=== PATIENT | female | born 1990 | race Caucasian/White ===

== ENCOUNTER 2022-06-27 07:20 | Emergency (ER) | payer MEDICAID, SELFPAY ==
--- NOTE | ~2022-06-27 | US_ITS ---
EXAMINATION: ULTRASOUND OB, LIMITED CLINICAL INFORMATION: 26 week patient with question no movement. Patient late to care. COMPARISON: None TECHNIQUE: Transabdominal and transvaginal pelvic ultrasound. A transvaginal study was performed in addition to the transabdominal study which did not yield an adequate examination of the uterus and due to superimposed distended gas-filled loops of bowel. FINDINGS: Based on patient's last vesicle. Of 12/30/2021, a 25 week 4 day gestation is expected with estimated date of delivery of 10/06/2022. A single live intrauterine gestation is identified with a positive heartbeat of 146 bpm the placenta is anterior and fundal in location. The cervix is not demonstrated adequately and internal os as well as the placental edge relative to the cervix are not assessed on this exam. Limited anatomy assessment reveals normal four-chamber heart, stomach, bladder, and kidneys. Following dating parameters are obtained: BPD 6.3 cm equals 25 weeks 3 days. OFD 8.2 cm equals 25 weeks 3 days. Head circumference 23.4 cm equals 25 weeks 3 days. Abdominal circumference 23.3 cm equals 27 weeks 5 days. Femur length 4.4 cm equals 24 weeks 5 days. Estimated weight is 2 lbs. 1 oz. (944 g). The amount of amniotic fluid present is qualitatively normal. movement is documented as being present while scanning. The ovaries are not visualized. US/US OB limited IMPRESSION: 1. Single live intrauterine gestation is identified with a positive heartbeat of 146 bpm. Based on the dating parameters obtained, the 26th 0 day gestation is identified with an estimated date of delivery of 10/03/2022. These dates are similar to the clinical dates. 2. As discussed above, the cervix is not adequately assessed on this limited exam. Dedicated second trimester ultrasound in the nonemergent setting is recommended.
[2022-06-27 07:26] VITALS: BP 108/57; PULSE 92; RESP 18; TEMP 36.5; O2SAT 100; BMI 28.1
--- NOTE | 2022-06-27 07:45 | ED_ITS ---
HPI - General Adult General Chief complaint: General Medical Stated complaint: 26 wks no movement Time Seen by Provider: 06/27/22 07:45 Source: patient Mode of arrival: ambulatory Limitations: no limitations History of Present Illness HPI narrative: Patient 26 weeks moved from [place] last ultrasound was 3 months ago for last 2 days patient noticed less movements. No vaginal discharge no abdominal pain patient had normal deliveries in last 4 pregnancies Related Data Allergies Allergy/AdvReac Type Severity Reaction Status Date / Time No Known Allergies Allergy Verified 06/27/22 07:25 Review of Systems Review of Systems: Yes all other systems are reviewed and are negative [facility] Social History Social History Advance Directives: No Advance Directives Information Provided: No Physical Exam ED Vital Signs: Vital Signs - 24 hr 06/27/22 07:26 06/27/22 07:50 06/27/22 09:29 Temperature 97.7 F 97.8 F 98.5 F Pulse Rate 92 84 80 Respiratory Rate 18 16 16 Blood Pressure 108/57 L 108/55 L 111/60 Pulse Oximetry 100 98 98 Oxygen Delivery Method Room Air Room Air Room Air BMI result Body Mass Index 28.1 Appearance: Alert. Oriented X3. No acute distress. ENT: Pharynx normal. Oral Mucosa moist Neck: Normal inspection. Neck supple. CVS: Normal heart rate and rhythm. Pulses normal. Respiratory: No respiratory distress. Equal air entry bilateral, no wheezing/rales/rhonchi Abdomen: Soft and nontender. Gravid uterus, Bowel sounds are present, no mass palpable, no CVA tenderness Skin: Skin warm and dry. Normal skin color. Normal skin turgor. Extremities: No lower extremity edema. No calf tenderness Neuro: Oriented X 3. Medical Decision Making MDM Narrative Medical decision making narrative: 730 am Bedside ultrasound revealed movements and heart activity, heart rate of 156,. Official ultrasound also suggestive of same will discharge patient home advised to follow up with 0 BG Lab Data Labs: Lab Results 06/27/22 Range/Units 08:29 Urine Color Yellow Urine Appearance Clear Urine pH 6.5 (5.0-9.0) Ur Specific [place] 1.010 (1.005-1.025) Urine Protein Negative (Neg-Trace) mg/dL Urine Glucose (UA) Negative (Negative) mg/dL Urine Ketones Negative (Negative) mg/dL Urine Blood Negative (Negative) Urine Nitrite Negative (Negative) Ur Leukocyte Esterase Trace H (Negative) Urine RBC 0-2 (0-2) /HPF Urine WBC 0-5 (0-5) /HPF Ur Squamous Epith Cells 0-2 (0-2) /HPF Urine Bacteria None Seen (None Seen) Hyaline Casts 0-2 (0-2) /LPF Imaging Data US - abdomen: Attestation: I personally reviewed and interpreted this imaging study as follows: Radiologist's impression: US/US OB limited IMPRESSION: 1.? Single live intrauterine gestation is identified with a positive heartbeat of 146 bpm. Based on the dating parameters obtained, the 26th 0 day gestation is identified with an estimated date of delivery of 10/03/2022. These dates are similar to the clinical dates. 2.? As discussed above, the cervix is not adequately assessed on this limited exam. Dedicated second trimester ultrasound in the nonemergent setting is recommended. ? Discharge Plan Discharge Clinical Impression: Third trimester Patient Disposition: Home, Self-Care Instructions: at 23 to 26 Weeks (ED) Additional Instructions: Your ultrasound shows normal movements and heart rate Follow-up with OB G at [facility] Report to ER if any concern Referrals: Norma Richey MD [Physician] - 1 week Interventions: ED Discharge Assessment Last Done: 06/27/22 10:32 Discharge Date/Time: 06/27/22 10:33
[2022-06-27 07:50] VITALS: BP 108/55; PULSE 84; RESP 16; TEMP 36.6; O2SAT 98
--- NOTE | 2022-06-27 07:58 | PC.NURSE ---
PT HAD A BEDSIDE ULTRASOUND BY DR MALONEY, DOPPLER HEART RATE 150-165. PT TO US DEPARTMENT FOR COMPREHENSIVE EXAM
[2022-06-27 08:42] LABS: Appearance Urine Clear; Color Urine Yellow; Glucose Urine UA Negative (Negative); Leukocyte Esterase Urine Trace (Negative); Nitrite Urine Negative (Negative); PH 6.5 (5.0-9.0); UMIC TRIGGER UACC YES; Urine Blood Negative (Negative); Urine Ketones Negative (Negative); Urine Protein Negative (Neg-Trace)
[2022-06-27 08:49] LABS: Bacteria Urine None Seen (None Seen); Hyaline Casts Urine 0-2 /LPF (0-2); RBC Urine 0-2 /HPF (0-2); Squamous Epithelial Cell Urine 0-2 /HPF (0-2); WBC Urine 0-5 /HPF (0-5)
[2022-06-27 09:29] VITALS: BP 111/60; PULSE 80; RESP 16; TEMP 36.9; O2SAT 98
== END 2022-06-27 10:33 | disposition home or self-care (01) ==
PROVIDERS: Emergency Provider Internal Medicine
DX: Z03.79 Encounter for other suspected maternal and fetal conditions ruled out (principal)
CPT/HCPCS: 76815; 81001; 99283; 99284

== ENCOUNTER 2023-05-27 13:59 | Outpatient (REF) | payer MEDICAID, SELFPAY ==
[2023-05-27 17:21] LABS: MANUAL DIFF FLAG NO
[2023-05-27 17:35] LABS: Basophils Absolute Auto 0.1 X10*3/uL (0.0-0.2); Eosinophils Absolute Auto 0.3 X10*3/uL (0.0-0.4); Eosinophils Percent Auto 3.6 % (0-4); Hematocrit 35.2 % (37.0-47.0); Hemoglobin 10.5 g/dl (12.0-16.0); Imm Gran Abs Auto 0.01 X10*3/uL (0.00-0.03); Imm Gran Pct Auto 0.1 % (0.0-0.4); Lymphocytes Absolute Auto 2.4 X10*3/uL (1.2-4.9); Lymphocytes Percent Auto 32.8 % (20-40); Mean Corpuscular HGB Conc 29.8 g/dl (31.0-35.0); Mean Corpuscular Hemoglobin 23.2 pg (27.0-33.0); Mean Corpuscular Volume 77.9 fL (80.0-98.0); Mean Platelet Volume 10.6 fL (9.4-12.3); Monocytes Absolute Auto 0.4 X10*3/uL (0.1-1.2); Monocytes Percent Auto 5.9 % (2-11); Neutrophils Absolute Auto 4.1 x10*3/uL (2.0-8.3); Neutrophils Percent Auto 56.6 % (45-73); Platelet Count 326 X10*3/uL (160-400); Red Blood Count 4.52 X10*6/uL (4.20-5.50); Red Cell Distribution Width 16.8 % (11.0-16.0); White Blood Count 7.3 X10*3/uL (4.8-10.8)
[2023-05-27 18:01] LABS: Alanine Aminotransferase 22 U/L (0-31); Albumin Level 3.9 g/dL (3.5-5.0); Alkaline Phosphatase 78 U/L (39-117); Anion Gap 12 (12-20); Aspartate Amino Transferase 20 U/L (5-31); Bilirubin Total 0.1 mg/dL (0.0-1.0); Blood Urea Nitrogen 14 mg/dL (9-16); Calcium 9.6 mg/dL (8.4-10.2); Carbon Dioxide 28 mmol/L (22-29); Chloride 104 mmol/L (96-108); Estimated Glomerular Filt Rate > 60; Glucose Random 83 mg/dL (60-115); Potassium 4.9 mmol/L (3.3-5.1); Sodium 139 mmol/L (135-145); Total Protein 7.4 g/dL (6.5-8.0)
[2023-05-27 18:12] LABS: TSH reflex Free T4 0.71 uIU/mL (0.32-4.0)
[2023-05-28 04:35] LABS: HIV AB/AG Nonreactive (Nonreactive); HIV Num 1 0.05 S/CO (0.00-0.99); ~HepC Num1 0.07 S/CO (0.00-0.79); ~Hepatitis C Antibody Nonreactive (Nonreactive)
== END 2023-05-27 14:00 | disposition home or self-care (01) ==
LOC: HO.CHCLDS 13:59
PROVIDERS: Visit Provider Family Medicine
DX: Z11.4 Encounter for screening for human immunodeficiency virus [HIV] (principal); E66.3 Overweight
CPT/HCPCS: 36415; 80053; 84443; 85025; 86803; 87389

== ENCOUNTER 2024-08-10 14:17 | Outpatient (REF) | payer MEDICAID, SELFPAY ==
[2024-08-12 22:38] LABS: TS Negative Control Passed; TS Panel A 0; TS Panel B 0; TS Positive Control Passed; TSpotTB Negative (Negative)
== END 2024-08-10 14:18 | disposition home or self-care (01) ==
LOC: HO.CHCLDS 14:17
PROVIDERS: Visit Provider Family Medicine
DX: Z11.1 Encounter for screening for respiratory tuberculosis (principal)
CPT/HCPCS: 36415; 86481

== ENCOUNTER 2024-12-14 14:17 | Outpatient (REF) | payer MEDICAID, SELFPAY ==
--- NOTE | ~2024-12-14 | XR_ITS ---
CLINICAL HISTORY: Thoracic back sprain 2 views thoracic spine Comparison: None Findings: Normal alignment. No acute fractures or dislocation. No significant vertebral body compression deformity. No significant degenerative change. IMPRESSION: No acute findings. This document has been electronically signed by: Emiliana Lopez DO on 12/16/2024 11:40:29
--- NOTE | ~2024-12-14 | XR_ITS ---
CLINICAL HISTORY: chronic headaches 6 views cervical spine Comparison: None Findings: Normal alignment. No acute fractures or dislocation. No significant degenerative change. Prevertebral soft tissues within normal limits. Lung apices are clear. IMPRESSION: No acute findings. This document has been electronically signed by: Emiliana Lopez DO on 12/16/2024 11:44:14
--- OUTSIDE RECORDS SUMMARY | 2024-12-14 17:33 | XMS_ITS | Continuity of Care Document ---
Author Organization [facility] ter Address [address] [place] [id number]- Support Name Relationship Address Phone VERÓNICA MALDONADO child Unknown Unavaila ble NO, ONE Other Unknown Unavailable KELIN STOLL sibling Unknown Unavailab le Encounter [facility] Date(s): 12/08/24 - 12/08/[address] [address]- Encounter Diagnosis Back spasm(Final) - 12/08/24 Discharge Disposition: A-D/C Home Attending Physician: Isiah Paredes MD Admitting Physician: Isiah Paredes MD Referring Physician: Not on Staff, Referring MD Encounter Type: Disch ES Allergies, Adverse Reactions, Alerts No Known Allergies Immunizations Given and Recorded Vaccine Date Status Refusal Reason tetanus/diphtheria/pertussis, acel(Tdap) 08/03/22 Given Medications cyclobenzaprine 10 mg oral tablet 10 mg, Tablet, By Mouth, Once, STAT, 12/08/24 2:05:00 PM EST, Stop date 12/08/24 2:11:52 PM EST Start Date: 12/08/24 Stop Date: 12/08/24 Status: Completed Repeat number: 1 cyclobenzaprine 10 mg oral tablet 10 mg, 1, tablet, By Mouth, 3 times a day, PRN, for 5 days, # 15 tablet, Refills 0, Tot. Refills 0,Acute 12/13/24 2:34:00 PM EST, Spasm, 12/08/24 2:34:00 PM EST, Route to Pharmacy Electronically, [facility]/pharmacy #[id number], Partial fill upon patient request if the prescription is for a schedule II opioid drug., 154, cm, 12/08/24 10:24:00 EST, Height, 56.5, kg, 12/08/24 10:24:00 EST, Dry Weight Start Date: 12/08/24 Stop Date: 12/13/24 Status: Ordered Quantity: 15.0 Unit: tablet Repeat number: 1 ferrous sulfate 325 mg oral tablet 1 tablet = 325 mg, By Mouth, 2 times a day, # 180 tablet, 2 Refills, Maintenance, 10/12/22 9:35:00 AMEST, Tablet, [facility], Partial fill upon patient request if the prescription is fora schedule II opioid drug., 158, cm, 10/01/22 9:16:00 EST, Height, 74, kg, 09/29/22 8:57:00 EST, Dry Weight Start Date: 10/12/22 Stop Date: 07/09/23 Status: Ordered Quantity: 180.0 Unit: tablet Repeat number: 3 Indication: Anemia complicating , unspecified trimester Lidoderm 5% film 1 patch, Topically, Daily, # 5 patch, 0 Refills, Maintenance, 12/08/24 2:34:00 PM EST, [facility]/pharmacy #[id number], Partial fill upon patient request if the prescription is for a schedule II opioid drug., 1 patch Topically Daily,x5 days, 154, cm, 12/08/24 10:24:00 EST, Height, 56.5, kg, 12/08/24 10:24:00 EST, Dry Weight Start Date: 12/08/24 Stop Date: 12/13/24 Status: Ordered Quantity: 5.0 Unit: patch Repeat number: 1 MiraLax oral powder for reconstitution = 17 Gm, By Mouth, Daily, dissolve in water before taking, # 255 Gm, 0 Refills, Maintenance, 10/01/22 10:01:00 AM EST, REC Powder, [facility], Partial fill upon patient request if the prescription is for a schedule II opioid drug., 17 Gm By Mouth Daily,Instr:dissolve in water before taking, 158, cm, 10/01/22 9:16:00 EST, Height, 74, kg, 09/29/22 8:57:00 EST, Dry Weight Start Date: 10/01/22 Status: Ordered Quantity: 255.0 Unit: g Repeat number: 1 [place]w Multivitamins oral tablet, chewable 1 tablet, Chew, Daily, Please fill with any chewable vitamin covered by pt insurance with at least 800mcg folic acid. thank you, # 30 tablet, 5 Refills, Maintenance, 07/07/22 2:31:00 PM EDT, Chew Tablet, [facility] #[id number], Partial fill upon patient request if the prescription is for a schedule II opioid drug., 1 tablet Chew Daily,x30 days,Instr:Please fill with any chewable vitamin covered by pt insurance with at least 800mcg folic acid. thank you, 158, cm, 07/07/22 13:52:00 EDT, Height Start Date: 07/07/22 Stop Date: 01/03/23 Status: Ordered Quantity: 30.0 Unit: tablet Repeat number: 6 Nicotine 2 mg gum 1 each = 2 mg, Chew, Every 2 hours, PRN as needed for smoking cessation, # 40 each, 1 Refills, Maintenance, 11/10/22 9:08:00 AM EST, Gum, [facility], Partial fill upon patient request ifthe prescription is for a schedule II opioid drug., 158, cm, 11/10/22 8:26:00 EST, Height, 74, kg, 09/29/22 8:57:00 EST, Dry Weight Start Date: 11/10/22 Status: Ordered Quantity: 40.0 Unit: each Repeat number: 2 Indication: Nicotine dependence, unspecified, uncomplicated oxyCODONE 5 mg oral tablet 5 mg, 1, tablet, By Mouth, Every 4 hours, PRN, for 2 days, Partial fill upon patient request, # 12 tablet, Refills 0, Tot. Refills 0, Acute 12/10/24 2:34:00 PM EST, for pain, 12/08/24 2:34:00 PM EST, Route to Pharmacy Electronically, [facility]/pharmacy #[id number], Partial fill upon patient request if the prescription is for a schedule II opioid drug., 154, cm, 12/08/24 10:24:00 EST, Height, 56.5, kg, 12/08/24 10:24:00 EST, Dry Weight Start Date: 12/08/24 Stop Date: 12/10/24 Status: Ordered Quantity: 12.0 Unit: tablet Repeat number: 1 OxyCODONE IR Tablet 5 mg, Tablet, By Mouth, Once, STAT, 12/08/24 2:06:00 PM EST, Stop date 12/08/24 2:11:53 PM EST Start Date: 12/08/24 Stop Date: 12/08/24 Status: Completed Repeat number: 1 sertraline 50 mg oral tablet 1 tablet = 50 mg, By Mouth, Daily, 1/2 tablet daily x4 days then increase to one tablet PO daily, #30 tablet, 3 Refills, Maintenance, 11/10/22 8:50:00 AM EST, Tablet, [facility], Partial fill upon patient request if the prescription is for a schedule II opioid drug., 158, cm, 238:26:00 EST, Height, 74, kg, 09/29/22 8:57:00 EST, Dry Weight Start Date: 11/10/22 Status: Ordered Quantity: 30.0 Unit: tablet Repeat number: 4 Indication: Other mental disorders complicating the puerperium simethicone 80 mg oral tablet, chewable 80 mg, Chew, 3 times a day, PRN, # 36 tablet, Refills 0, Tot. Refills 0, Maintenance, Gas, 10/01/2210:01:00 AM EST, Route to Pharmacy Electronically, [facility], Partial fill upon patient request if the prescription is for a schedule II opioid drug., 158, cm, 10/01/22 9:16:00 EST, Height, 74, kg, 09/29/22 8:57:00 EST, Dry Weight Start Date: 10/01/22 Status: Ordered Quantity: 36.0 Unit: tablet Repeat number: 1 Problem List Condition Confirmation Course Effective Dates Status H ealth Status Informant Anemia Confirmed Active H/O: section x 4 Confirmed Active Insufficient care Confirmed Active Migraines Confirmed Active Anxiety and depression Confirmed Active Polyhydramnios Confirmed Active Rh negative Confirmed Active Results Radiology Reports * Exam Date Time Procedure Performing Provider Status 12/08/24 11:[address] Abdomen and Pelvi s W/O Contrast Camila Sosa; Addison (Verified) Notes: (CT Abdomen and Pelvis W/O Contrast) Reason For Exam: Flank pain, kidney stone suspected;Other: RESULT: CT Abdomen and Pelvis W/O Contrast CT Abdomen and Pelvis W/O Contrast Hx of Present Illness: : lower back pain since yesterday nki but then states she takes meds for back issues; Reason: Other:; Flank pain, kidney stone suspected; Clinical Question(s): Calculus; Left Side flank; Order Comment: TECHNIQUE: Spiral CT through the abdomen and pelvis without IV contrast formatted in 3 planes. Thisstudy was performed without oral contrast. Weight- based protocol using automatic tube modulation was used to optimize exposure parameters. COMPARISON: FINDINGS: Field Insurance Sales Manager View Findings, Lines and Tubes: None. Visualized Chest: Lung bases are clear. No pleural effusion. The heart is normal in size. No pericardial effusion. Diaphragm: Normal. Liver: Normal. Gallbladder: No CT evidence of gallbladder pathology. Bile ducts: No biliary ductal dilation. Spleen: Normal. Pancreas: Normal. Adrenal glands: Normal. Kidneys and ureters: No hydronephrosis, stones, or noncontrast evidence of suspicious masses. Bladder: Normal. Reproductive organs: Unremarkable. Stomach, small bowel, and large bowel: Normal. Moderate amount of stool throughout colon. Appendix: Normal. Peritoneum and retroperitoneum: No ascites or pneumoperitoneum. No omental or mesenteric lesions. Lymph nodes: No enlarged lymph nodes. Blood vessels: Normal. No aneurysm. Abdominal and pelvic wall: Unremarkable. Bones: No acute abnormality. IMPRESSION: No evidence of nephrolithiasis or obstructive uropathy. WSN: [id number] Ordering Physician: Isiah Paredes Dictated By: Valerie Davey MD Dictated Date/Time: 12/08/24 12:08 p Reviewed By: Valerie Davey MD Signed By: Valerie Davey MD Signed Date/Time: 12/08/24 12:08 pm Transcribed By: CIELO Transcribed Date/Time: 12/08/24 12:03 pm Vital Signs Most recent to oldest [Reference Range]: 1 2 3 Height 154 cm (12/08/24 2:47 PM) 154 cm (12/08/24 10:24 AM) Weight 56.5 kg (12/08/24 10:24 AM) Oxygen Saturation [94-100 %] 100 % (12/08/24 2:47 PM) 99 % (12/08/24 10:24 AM) Pulse Rate [55-90 bpm] 63 bpm (12/08/24 2:47 PM) 104 bpm *H* (12/08/24 10:24 AM) Body Mass Index [18.5-24.99 kg/m2] 23.82 kg/m2 (12/08/24 10:24 AM) Blood Pressure [90-138/55-84 mm Hg] 119/78mm Hg (12/08/24 2:47 PM) 134/79mm Hg (12/08/24 10:24 AM) Respiratory Rate [16-30 br/min] 16 br/min (12/08/24 3:10 PM) 16 br/min (12/08/24 3:10 PM) 18 br/min (12/08/24 2:47 PM) Temperature [96.8-100.4 DegF] 97.9 DegF (12/08/24 2:47 PM) 98.0 DegF (12/08/24 10:24 AM) Mode of Delivery (Oxygen) Room air (12/08/24 2:47 PM) Room air (12/08/24 10:24 AM) Blood pressure sites Arm, left (12/08/24 2:47 PM) Arm, left (12/08/24 10:24 AM) Temperature Route Oral (12/08/24 2:47 PM) Oral (12/08/24 10:24 AM) Dry Weight 56.5 kg (12/08/24 10:24 AM) Weight Obtained Via Patient/family state d (12/08/24 10:24 AM) Dry Weight Obtained Via Patient/family s tated (12/08/24 10:24 AM) Social History Social History Type Response Smoking Status Former smoker, quit more than 30 days ago; Other: Pt quit at 12wks , congratulated!; entered on: 07/07/22 Sex Sex Representation Female (finding) Note * Isiah Paredes MD: PERFORM Event Display: Patient Education Leaflets Authored Date: [id number] Back Spasm (No Trauma) ?? [id number] Back Spasm (No Trauma) Spasm of the back muscles can occur after a sudden forceful twisting or bending such as in a car accident. A spasm can also happen after a simple awkward movement. Or after lifting something heavy without the correct body positioning. In any case, muscle spasm adds to the pain.??Sleeping in an awkward position or on a poor quality mattress can also cause this. Some people respond to emotional stress by tensing the muscles of their back. Lasting pain may need further assessment. Or you may need other types of treatment such as physicaltherapy. You don't always need X-rays for the first assessment of back pain, unless you had a physical injury such as from a car accident or fall. If your pain continues and doesn't respond to medical treatment, X-rays and other tests may then be done.?? Home care ??? As soon as possible, start sitting or walking again. This will help prevent problems from a long bed rest. These problems include muscle weakness, worsening back stiffness and pain, and blood clots in the legs. ??? When in bed, try to find a position of comfort. A firm mattress is best. Try lying flat on your back with pillows under your knees. You can also try lying on your side with your kne es bent up toward your chest and a pillow between your knees. ??? Don't sit for long periods. Also limit car rides and travel. This puts more stress on the lower back than standing or walking.? During the first 24 to 72 hours after an injury or flare-up, put an ice pack on the painful area for20 minutes, then remove it for 20 minutes. Do this over a period of 60 to 90 minutes, or several times a day. This will reduce swelling and pain. Always wrap ice packs in a thin towel. ??? You can start with ice, then switch to heat. Heat from a hot shower, hot bath, or heating pad reduces pain andworks well for muscle spasms. Put heat on the painful area for 20 minutes, then remove it for 20 minutes. Do this over a period of 60 to 90 minutes, or several times a day. Don't sleep on a heating pad. It can burn or damage skin. ??? Alternate using ice and heat. ??? Be aware of safe lifting methods. don't lift anything over 15 pounds until??all the pain is gone. Gentle stretching will help your back heal faster. Do this simple routine 2 to 3 times a day until your back is feeling better. ??? Lie on your back with your knees bent and both feet on the ground. ??? Slowly raise your left knee to your chest as you flatten your lower back against the floor. Holdfor??20 to 30??seconds. ??? Relax and repeat the exercise with your right knee. ??? Do??2 to 3??of these exercises for each leg. ??? Repeat, hugging both knees to your chest at the same time. ??? Don't bounce, but use a gentle pull. ?? Medicines Talk with your doctor before using medicine, especially if you have other medical problems or are taking other medicines. You may use [id number] medicines such as acetaminophen, ibuprofen, or naproxen to control pain, unless your healthcare provider prescribed another pain medicine. Talk with your provider if you have a chronic condition such as diabetes, liver or kidney disease, stomach ulcer, or digestive bleeding. Also talk with them if you're taking blood thinners. Be careful if you are given prescription pain medicine, opioids, or medicine for muscle spasm. Theycan cause drowsiness. It can affect your coordination, reflexes, and judgment. Don't drive or operate heavy machinery when taking these medicines. Take pain medicine only as prescribed by your provider. ?? Follow-up care Follow up with your doctor as advised. You may need physical therapy or more tests. If X-rays were taken, they may be reviewed by a radiologist. You'll be told of any new findings that may affect your care. ?? Call 911 Call 911 if any of these occur: ??? Trouble breathing ??? Confusion ??? Drowsiness or trouble awakening ??? Fainting or loss of consciousness ??? Rapid or very slow heart rate ??? Loss of bowel or bladder control ?? When to get medical care Call your healthcare provider right away if any of these occur: ??? Pain gets worse or spreads to your legs ??? Weakness or numbness in 1 or both legs ??? Numbness in the groin or genital area ??? Fever of 100.4??F (38??C) or higher, or as advised by your provider ??? Chills ??? Burning feeling or pain when you pee ?? Last Reviewed Date: 2022 ?? [id number] The [employer]TM) by [employer]. All rights reserved. This information is not intended as a substitute for professional medical care. Always follow your healthcare professional's instructions. ?? Patient Care team information Care Team Related Persons Name: NO, ONE Name: VERÓNICA MALDONADO Name: KELIN STOLL Insurance Providers Guarantor name: [employer] Health Plan Information #: 1 Payer: [employer] Member Number: [id number] Policy Number: NA Group Number: [employer] Plan Information #: 2 Payer: [employer] Member Number: [id number] Policy Number: MILLIE Group Number: NA
== END 2024-12-14 14:18 | disposition home or self-care (01) ==
LOC: HO.XRAY 14:17
PROVIDERS: PCP Internal Medicine; Visit Provider Pediatrics
DX: S23.9XXD Sprain of unspecified parts of thorax, subsequent encounter (principal); G43.909 Migraine, unspecified, not intractable, without status migrainosus
CPT/HCPCS: 72050; 72070

== ENCOUNTER → 2024-12-14 14:22 | Outpatient (BNV) | payer MEDICAID, SELFPAY | PROVIDERS: PCP Internal Medicine; Visit Provider Radiology Diagnostic Radiology | DX: S23.3XXA Sprain of ligaments of thoracic spine, initial encounter (principal); R51.9 Headache, unspecified | CPT/HCPCS: 72050; 72070 ==